=== PATIENT | female | born 2000 | race Caucasian/White ===

== ENCOUNTER 2025-01-15 18:44 | Emergency (ER) | payer MEDICAID, OTHER ==
[~2025-01-15] VITALS: Ht 175.3 cm; Wt 97.4 kg
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
[2025-01-15 19:30] VITALS: BP 139/75; PULSE 67; RESP 18; TEMP 98.2; O2SAT 99
[2025-01-15] MEDS: KETOROLAC TROMETH 60MG/2ML VIAL IM ONE (19:40)
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
[2025-01-15] MEDS ORDERED: TIZA-142 PO (21:06)
[2025-01-15] MEDS ORDERED: IBUP-1456 PO (21:06)
== END 2025-01-15 21:35 | disposition home or self-care (01) ==
LOC: ER 18:44
DX: S13.4XXA Sprain of ligaments of cervical spine, initial encounter (principal); V43.52XA Car driver injured in collision with other type car in traffic accident, initial encounter; Y93.89 Activity, other specified; Y92.410 Unspecified street and highway as the place of occurrence of the external cause; Y99.8 Other external cause status
CPT/HCPCS: 72040; 96372; 99283; J1885